=== PATIENT | male | born 1940 | race Caucasian/White ===

== ENCOUNTER 2019-03-19 01:54 | Inpatient (IN) | payer MEDICARE ==
[2019-03-19] VITALS (15 sets, daily range): BP systolic 118–158; BP diastolic 65–99
[~2019-03-19] VITALS: Ht 175.3 cm; Wt 101.6 kg
[~2019-03-19 01:54] MED LIST: FURO-47 PO; GLIP-152 PO; LISI-374 PO; METF-452 PO; OMEP-125 PO; SIMV-49 PO
[2019-03-19] MEDS ORDERED: MIDAZOLAM 2 MG/2 ML VIAL IVP PRN (06:00)
[2019-03-19] MEDS ORDERED: PREGABALIN 75 MG CAPSULE PO ONE (06:00)
[2019-03-19] MEDS ORDERED: NORMOSOL R SOLN(*) 1000 ML BAG 1,000 ML IV PRN (06:00)
[2019-03-19] MEDS ORDERED: ceFAZolin(*) 2GM/D5W 50ML 50 ML IVPB ONE (06:00)
[2019-03-19] MEDS ORDERED: LIDOCAINE/SOD BICARB 8.4% SYR ID ONE (06:00)
[2019-03-19] MEDS ORDERED: BACITRACIN 50000 UNIT/VIAL 50,000 UNIT in NS 0.9% IRRIG(*) 1000ML PLCT 1,000 ML IR PRN (06:00)
[2019-03-19] MEDS ORDERED: ACETAMINOPHEN 500 MG TAB PO ONE (06:00)
[2019-03-19] MEDS ORDERED: PROPOFOL EMUL(*) 10MG/ML 20 ML 80 ML ONE (06:20)
[2019-03-19] MEDS ORDERED: LIDOCAINE MPF 1% 5 ML VIAL ONE (06:25)
[2019-03-19] MEDS ORDERED: ONDANSETRON 4 MG/2 ML VIAL ONE (06:25)
[2019-03-19] MEDS ORDERED: DEXAMETHASONE SOD PHOS 10MG/ML ONE (06:25)
[2019-03-19] MEDS ORDERED: fentaNYL CITR 100 MCG/2 ML AMP ONE (06:27)
[2019-03-19] MEDS ORDERED: KETAMINE HCL-NS 50 MG/5 ML SYR ONE (06:27)
[2019-03-19] MEDS ORDERED: ROCURONIUM BROM 10 MG/ML 10 ML ONE (06:28)
[2019-03-19] MEDS ORDERED: REMIFENTANIL HCL 1 MG VIAL ONE ×3 (06:33→07:55)
[2019-03-19] MEDS ORDERED: PROPOFOL EMUL(*) 10MG/ML 20 ML 60 ML ONE (08:10)
[2019-03-19] MEDS ORDERED: INSU HUM REG 100 U/ML(ER ONLY) 10 ML VIAL SUBQ ONE (10:00)
[2019-03-19] MEDS ORDERED: BENZOCAINE/MENTHOL 1 EACH LOZG PO PRN (10:35)
[2019-03-19] MEDS ORDERED: FLUSH 10 ML SYR IVP PRN (10:35)
[2019-03-19] MEDS ORDERED: MAGNESIUM HYDROXIDE* 30ML UDCP PO PRN (10:35)
[2019-03-19] MEDS ORDERED: diphenhydrAMINE 25 MG CAP PO PRN (10:35)
[2019-03-19] MEDS ORDERED: HYDROmorphone HCL 2 MG/ML SDV IVP PRN (10:35)
[2019-03-19] MEDS ORDERED: DIAZEPAM 5 MG TAB PO PRN (10:35)
[2019-03-19] MEDS ORDERED: LR(*) 1000 ML BAG 1,000 ML IV PRN (10:35)
[2019-03-19] MEDS ORDERED: ACETAMINOPHEN 500 MG TAB PO PRN (10:35)
[2019-03-19] MEDS ORDERED: ACETAMINOPHEN(*)1000 MG/100 ML 100 ML IVPB PRN (10:35)
[2019-03-19] MEDS ORDERED: ONDANSETRON 4 MG/2 ML VIAL IVP PRN (10:35)
[2019-03-19] MEDS ORDERED: BISACODYL 10 MG SUPP PR PRN (10:35)
--- NOTE | 2019-03-19 12:07 | RADIOLOGY IMAGING REPORT ---
FACILITY: [facility] - [place] PATIENT NAME: Riki Germain : 1940 MR: [id number] V: [id number] EXAM DATE: ORDERING PHYSICIAN: LURDES LUCERO TECHNOLOGIST: Location: [facility] - [place] Patient: Riki Germain : 1940 Visit/Account:[id number] Date of Sevice: 03/19/2019 CERVICAL SPINE 2 OR 3 VIEW Indication: C5-C6 DISC HERNIATION/FUSION Comparison: None. Findings: Intraoperative images are available, with hardware identified at the level of C5-6. IMPRESSION: Intraoperative images from C5-6 disc surgery. Report Dictated By: Bertin Coronel at 03/19/2019 12:01 PM Report E-Signed By: Bertin Coronel at 03/19/2019 12:01 PM WSN:[email or web address]
[2019-03-19] MEDS: oxyCODONE HCL 5 MG CAP PO PRN ×2 (12:09→18:25)
--- NOTE | 2019-03-19 12:11 | Hospitalist Consultation ---
History of Present Illness Requesting Physician Dr. Montez Reason for Consult Medical Management Chief Complaint s/p cervical fusion History of Present Illness He was admitted s/p cervical fusion. It is reported the surgery went well and without complication. History Problems: (1) Type 2 diabetes mellitus Status: Chronic (2) SANDEEP (obstructive sleep apnea) Status: Chronic (3) Hyperlipidemia Status: Chronic (4) Hypertension Status: Chronic Home Meds Reported Medications Furosemide (FUROSEMIDE) 40 Mg Tablet, 0.5 TAB PO DAILY, TAB 03/12/19 Omeprazole (OMEPRAZOLE) 20 Mg Capsule.dr, 1 CAP PO BID, CAP 03/12/19 Simvastatin (SIMVASTATIN) 20 Mg Tablet, 10 MG PO HS, TAB 03/12/19 Lisinopril (LISINOPRIL) 40 Mg Tablet, 20 MG PO QDAY, TAB 03/12/19 Glipizide (GLIPIZIDE) 5 Mg Tablet, 5 MG PO BID 03/12/19 Metformin Hcl (METFORMIN HCL) 1,000 Mg Tablet, 1 TAB PO BID, TAB 03/12/19 Allergies: Coded Allergies: No Known Drug Allergies (Unverified , 03/12/19) Hx Smoking: Yes Smoking Status: Former Smoker When Quit Tobacco?: 1998 Caffeine Intake: Coffee Caffeine/Cups Per Day: 2 Hx Alcohol Use: No Hx Substance Use Disorder: No Social Drug Use: Never Review of Systems All Systems Reviewed/Normal: Yes, Except as Noted Exam Vital Signs Vital Signs Date Time Temp Pulse Resp B/P (MAP) Pulse Ox O2 Delivery O2 Flow Rate FiO2 03/19/19 11:12 98.4 16 140/74 (96) 91 Nasal Cannula 2.0 03/19/19 11:05 71 General Appearance: Alert, Awake, No Acute Distress, Afebrile Cardiovascular: Regular Rate and Rhythm Respiratory: No Respiratory Distress, Clear to Auscultation Psych: Alert & Oriented X3, Appropriate Mood & Affect Assessment and Plan Problems: (1) S/P cervical spinal fusion Status: Acute Assessment & Plan: Followed by Dr. Montez. (2) Type 2 diabetes mellitus Status: Chronic Assessment & Plan: He is on chronic treatment with Metformin and Glipizide. These medications will be resumed in the morning, if patient is eating well. He will be started on AC/HS blood glucose checks and SS insulin #2. (3) Hypertension Status: Chronic Assessment & Plan: Continue chronic Lisinopril with hold parameters. Hold furosemide for now. (4) Hyperlipidemia Status: Chronic Assessment & Plan: Continue chronic simvastatin. (5) SANDEEP (obstructive sleep apnea) Status: Chronic Assessment & Plan: He does use CPAP at night. Venous Thromboembolism Antithrombotics Is Pt On Any Antithrombotics?: No Problem Qualifiers (1) Hypertension: Hypertension type: essential hypertension Qualified Codes: I10 - Essential (primary) hypertension KARIN SIMPSON March 19, 2019 12:11
[2019-03-19] MEDS ORDERED: NS(*) 0.9% 500 ML BAG 500 ML IV PRN (14:35)
--- NOTE | 2019-03-19 14:57 | OPERATIVE REPORT 1 ---
EVENT DATE: March 19, 2019 SURGEON: Phong Montez MD ANESTHESIOLOGIST: Arnaldo Crews MD ANESTHESIA: General endotracheal anesthesia. ASSOCIATE BROKER: Sherwin Fox PA-C PREOPERATIVE DIAGNOSIS C5-C6 degenerative disk disease with C6 radiculopathy. POSTOPERATIVE DIAGNOSIS C5-C6 degenerative disk disease with C6 radiculopathy. PROCEDURE PERFORMED C5-C6 anterior cervical diskectomy and fusion. INTRAVENOUS FLUIDS 1900 mL. ESTIMATED BLOOD LOSS 30 mL. IMPLANTS USED 1. A 7 mm 6-degree lordotic size medium interbody device from [employer]. 2. Fixation screws 3.5 x 14 mm from [employer]. 3. ViBone 1 cc bone graft substitute. SPECIMENS None. DRAINS A 10-Hungarian round Constantine-Gonsalves drain through the anterior neck. COMPLICATIONS None. DISPOSITION Post-anesthesia care unit. INDICATIONS FOR SURGERY Mr. Germain is a 79-year-old male who presented to my clinic with radiating left arm symptoms in a C6 distribution. His physical examination was significant for a negative Spurling's, normal cervical range of motion, normal strength, and subjectively diminished sensation only in the index finger and some on the left. His imaging studies showed an auto fusion at C6-C7 and a significant posteriorly projecting osteophyte at C5-C6. The MRI showed significant foraminal narrowing bilaterally, left greater than right at the C5-C6 level, and he underwent a left-sided C6 selective nerve root injection that gave him excellent relief for a brief period of time. Secondary to his ongoing symptoms, his improvement with the selective nerve root injection and his failure overall of nonsurgical care, Mr. Germain was offered and elected to undergo C5-C6 anterior cervical diskectomy and fusion. Prior to surgery, I explained in detail to the patient the possible risks of surgery. These risks include bleeding, infection, damage to surrounding structures, nerve root injury, spinal fluid leak, meningitis, spinal cord injury, persistent and/or worsening pain, need for further surgery, , blindness, sexual dysfunction, autonomic nervous system dysfunction, and other unforeseen medical and surgical complications. An understanding that in general spinal surgery is more predictive at improving extremity discomfort than axial spine pain was stressed. DESCRIPTION OF PROCEDURE On the day of surgery, the patient was met in the preoperative hold area, and all questions were answered. The operative site was identified and marked by myself. The patient was brought in good condition to the operating room, and after succumbing to anesthesia, was positioned in the supine position on a standard OR bed. All bony protuberances and soft tissues were well padded in standard fashion. The arms were loosely secured at the sides to afford access to the anterior cervical spine. Preoperative antibiotics were administered according to the appropriate timing schedule. Care was taken to maintain appropriate perfusion pressures during anesthesia. At the conclusion of the procedure, sponge and needle counts were correct times two. A final timeout was undertaken by members of the operating team to confirm correct patient, correct levels, and correct surgery. The patient was then prepped and draped in the standard sterile orthopedic fashion. A transverse incision was made overlying the intended surgical levels on the left side of the anterior neck. Sharp dissection was carried out down to the platysma, which was divided. The medial border of the sternocleidomastoid muscle was identified, and blunt finger dissection was taken medial to that. A finger was used to palpate the carotid pulse, and further blunt finger dissection was taken medial to the carotid sheath. We then came down on the anterior cervical spine, and soft tissues were elevated off the anterior cervical spine in a subperiosteal fashion including the longus colli muscles. A lateral radiograph was obtained to confirm appropriate spinal levels, and a self-retaining retractor was placed at the C5-C6 level to expose the disk. A #15 blade was used to incision the anterior annulus of the cervical disk at C5-C6. A combination of progressively smaller curettes and rongeurs was used to perform a diskectomy from ventral to dorsal and out to the width of the uncovertebral joints bilaterally. Once we reached the posterior third of the disk space, a Cloward plodding operator was placed and distracted. There was no change in neurophysiologic monitoring. Further diskectomy was then carried out until we encountered the posterior longitudinal ligament. The PLL was dissected through using forward-angled curette and a nerve hook. The PLL was then taken down, taking portions of the posterior osteophyte with it using a #1 Kerrison punch. #1 and #2 Kerrison rongeurs were then used to perform foraminotomies bilaterally to completely decompress the exiting nerve roots on both sides. Once the decompression was completed, I was able to pass the nerve hook out through the foramen over the tops of the pedicles bilaterally with good decompression of the nerve roots on both sides. I then turned my attention to the fusion portion of the procedure and ensured that there was good bleeding bone across both surfaces. A trial spacer was placed size 7 mm, and motor-evoked potentials were run. There was no change in neurophysiologic monitoring. The size 7 fit nicely, and so we elected to use a regular 7 mm 6-degree lordotic interbody device. The device was packed with ViBone and then placed into the interbody space and countersunk about 0.5 mm. We then used the awl to penetrate the endplates above and below through the integrated holes within the implant. Screws 3.5 x 14 mm were then used to affix the implant within the interbody space. A lateral radiograph confirmed that we had excellent positioning of the device. Meticulous hemostasis was then obtained, and the wound was closed in layers using interrupted sutures for the platysma, inverted interrupted sutures for the subcutaneous tissue, and a running subcuticular skin stitch. Sponge and needle counts were correct times two. A drain was left deep to the platysma. POSTOPERATIVE CARE PLAN Mr. Germain will stay in the hospital overnight. He will be discharged home tomorrow morning after removal of his drain. He will then follow up with me in a couple of weeks for wound check and examination. INA
[2019-03-19] MEDS: ceFAZolin(*) 2GM/D5W 50ML 50 ML IVPB SCH ×2 (15:00→22:36)
--- NOTE | 2019-03-19 16:50 | NUR ---
Physical Therapy Impression PT eval complete. Pt demonstrated safety with functional mobility and is safe for DC when medically appropriate. Pt did have a decrease in SO2 with ambulation, nursing aware. Physical Therapy Goals Patient's Goals
[2019-03-19] MEDS: INSULIN HUM LISPRO 100 UN/ML 3 ML VIAL SUBQ PRN ×2 (16:57→20:54)
[2019-03-19] MEDS: APAP/HYDROCODONE 325/5 TAB PO PRN (19:53)
[2019-03-19] MEDS: DOCUSATE SODIUM 100 MG CAP PO SCH (20:54)
[2019-03-19] MEDS: PANTOPRAZOLE SOD 20 MG TABEC PO SCH (20:54)
[2019-03-19] MEDS ORDERED: SIMVASTATIN 20 MG TAB PO SCH (21:00)
[2019-03-20] MEDS: oxyCODONE HCL 5 MG CAP PO PRN (03:26)
[2019-03-20 03:30] VITALS: BP 136/76
[2019-03-20] MEDS: APAP/HYDROCODONE 325/5 TAB PO PRN ×2 (06:25→10:42)
[2019-03-20] MEDS: ceFAZolin(*) 2GM/D5W 50ML 50 ML IVPB SCH (06:42)
[2019-03-20 07:10] VITALS: BP 136/77
[2019-03-20] MEDS ORDERED: DOCU240C84 PO (07:10)
[2019-03-20] MEDS ORDERED: LOR5/325 PO (07:11)
[2019-03-20 08:10] VITALS: BP_SYST 138
[2019-03-20] MEDS: DOCUSATE SODIUM 100 MG CAP PO SCH (08:14)
[2019-03-20] MEDS: PANTOPRAZOLE SOD 20 MG TABEC PO SCH (08:14)
[2019-03-20] MEDS ORDERED: VITA-195 PO (08:21)
[2019-03-20] MEDS ORDERED: ASPI-1471 PO (08:21)
[2019-03-20] MEDS ORDERED: CHOL100059 PO (08:21)
[2019-03-20] MEDS ORDERED: SAXA2.5T3 PO (08:21)
[2019-03-20] MEDS ORDERED: FLUT16SP19 NS (08:21)
[2019-03-20] MEDS ORDERED: LISINOPRIL 20 MG TAB PO SCH (09:00)
[2019-03-20] MEDS ORDERED: metFORMIN HCL 500 MG TAB PO SCH (09:00)
[2019-03-20 09:25] VITALS: BMI 33.1
--- NOTE | 2019-03-20 09:37 | RADIOLOGY IMAGING REPORT ---
FACILITY: [facility] - [place] PATIENT NAME: Riki Germain : 1940 MR: [id number] V: [id number] EXAM DATE: ORDERING PHYSICIAN: LURDES LUCERO TECHNOLOGIST: Location: [facility] - [place] Patient: Riki Germain : 1940 Visit/Account:[id number] Date of Sevice: 03/20/2019 CERVICAL SPINE 2 OR 3 VIEW HISTORY: post op AP and lateral cervical spine films. No comparisons FINDINGS: Study demonstrates anterior cervical fusion with a metallic disc spacer centered at the C5-C6 level. 3 mm posterior spurring changes are projecting within the neural canal from the C5-6 disc space. Mi ld/moderate facet arthropathy noted in the cervical spine. Lung apices are clear IMPRESSION: 1. Anterior cervical disc fusion C5-6 level as described. Report Dictated By: Manuel Nugent MD at 03/20/2019 9:31 AM Report E-Signed By: Manuel Nugent MD at 03/20/2019 9:34 AM WSN:[email or web address]
--- NOTE | 2019-03-20 12:00 | Hospitalist Progress Note ---
Subjective Progress Notes Subjective He was admitted s/p cervical fusion. He has no complaints this morning. He had no acute events overnight. Patient Complains of: Cardiovascular: No: Chest Pain Respiratory: No: Shortness of Breath Physical Exam Vital Signs Date Time Temp Pulse Resp B/P (MAP) Pulse Ox O2 Delivery O2 Flow Rate FiO2 03/20/19 08:10 138/ 03/20/19 07:10 97.5 68 19 89 Nasal Cannula 0.5 Intake and Output 03/20/19 07:00 Intake Total 3390 ml Output Total 140 ml Balance 3250 ml Intake Oral 1140 ml IV Total 2250 ml Output Drainage Total 20 ml Other 120 ml # Voids 4 General Appearance: Alert, Awake, No Acute Distress, Afebrile Neuro: No Gross deficits Cardiovascular: Regular Rate and Rhythm Respiratory: No Respiratory Distress, Clear to Auscultation GI: Soft and Non-Tender Extremities: Warm, Perfused; No Edema Psych: Alert & Oriented X3, Appropriate Mood & Affect Assessment and Plan Problems: (1) S/P cervical spinal fusion Status: Acute Assessment & Plan: Followed by Dr. Montez. (2) Type 2 diabetes mellitus Status: Chronic Assessment & Plan: He is on chronic treatment with Metformin and Glipizide. These medications will be resumed this morning, and he is eating well. He was started on AC/HS blood glucose checks and SS insulin #2 throughout admission. (3) Hypertension Status: Chronic Assessment & Plan: Continue chronic Lisinopril with hold parameters. Hold furosemide for now, he will resume tomorrow. (4) Hyperlipidemia Status: Chronic Assessment & Plan: Continue chronic simvastatin. (5) SANDEEP (obstructive sleep apnea) Status: Chronic Assessment & Plan: He does use CPAP at night. Exam Sepsis Risk: No Definite Risk Problem Qualifiers (1) Hypertension: Hypertension type: essential hypertension Qualified Codes: I10 - Essential (primary) hypertension KARIN SIMPSON RETRIEVAL SPECIALIST March 20, 2019 12:00
[2019-03-21 14:56] VITALS: Ht 175.3 cm; Wt 101.6 kg
== END 2019-03-20 10:45 | disposition home or self-care (01) | DRG 473 ==
LOC: OR 01:54 → MED 11:35
PROVIDERS: ADMIT Orthopaedic Surgery; ATTEND Orthopaedic Surgery
PROC: 0RT30ZZ Resection of Cervical Vertebral Disc, Open Approach (ICD-10-PCS; 2019-03-19)
PROC: 01N10ZZ Release Cervical Nerve, Open Approach (ICD-10-PCS; 2019-03-19)
PROC: 0RG10A0 Fusion of Cervical Vertebral Joint with Interbody Fusion Device, Anterior Approach, Anterior Column, Open Approach (ICD-10-PCS; principal; 2019-03-19 07:06)
DX: M50.122 Cervical disc disorder at C5-C6 level with radiculopathy (principal); E11.9 Type 2 diabetes mellitus without complications; G47.33 Obstructive sleep apnea (adult) (pediatric); E78.5 Hyperlipidemia, unspecified; I10 Essential (primary) hypertension; I27.20 Pulmonary hypertension, unspecified; M1A.9XX0 Chronic gout, unspecified, without tophus (tophi); Z87.891 Personal history of nicotine dependence; Z79.84 Long term (current) use of oral hypoglycemic drugs
CPT/HCPCS: 36415; 36416; 72020; 72040; 82948; 86850; 86900; 86901; 95940; 97161; J0690; J1100; J1815; J2001; J2405; J2704; J3010; J3490